=== PATIENT | female | born 1980 | race Two or more races ===

== ENCOUNTER 2024-04-06 08:54 | Emergency (ER) | payer OTHER ==
[2024-04-06 09:02] VITALS: BP 116/78; PULSE 73; RESP 18; TEMP 97.6; BMI 23.0
[2024-04-06] MEDS ORDERED: IBUPROFEN 600 MG TABLET (FP) PO ONE ×2 (11:23→11:25)
== END 2024-04-06 12:13 | disposition home or self-care (01) ==
LOC: JERFT 08:54
PROC: 0HJPXZZ Inspection of Skin, External Approach (ICD-10-PCS; principal; 2024-04-06)
DX: S61.441A Puncture wound with foreign body of right hand, initial encounter (principal); W26.8XXA Contact with other sharp object(s), not elsewhere classified, initial encounter; Y99.0 Civilian activity done for income or pay
CPT/HCPCS: 73110-TC-RT-FY; 73130-TC-RT-FY; 99284-25